=== PATIENT | female | born 1945 | race Hispanic/Latino ===

== ENCOUNTER 2021-07-02 18:18 | Observation (INO) | payer MEDICARE ==
[~2021-07-02] VITALS: Ht 154.9 cm; Wt 77.1 kg
[2021-07-02 18:58] LABS: BASOPHILS % (AUTO) 0.4 % (0.0-5.0); EOSINOPHILS % (AUTO) 0.7 % (0.0-8.0); HEMATOCRIT 30.5 % (36-48); LYMPHOCYTES % (AUTO) 17.4 % (21.0-51.0); MEAN CORPUSCULAR HEMOGLOBIN 28.8 pg (27.0-33.0); MEAN CORPUSCULAR HGB CONC 32.5 g/dL (32.0-36.0); MEAN CORPUSCULAR VOLUME 88.7 fL (79-99); MONOCYTES % (AUTO) 5.9 % (3.0-13.0); NEUTROPHILS % (AUTO) 75.2 % (40.0-77.0); PLATELET COUNT (AUTO) 322 K/uL (130-400); RED BLOOD CELL COUNT(AUTO) 3.44 MIL/uL (4.00-5.50); RED CELL DISTRIBUTION WIDTH 15.6 % (11.0-15.5); WHITE BLOOD COUNT (AUTO) 7.6 K/uL (4.8-10.8)
[2021-07-02 19:07] LABS: CREATININE 0.8 mg/dL (0.5-1.5); POTASSIUM 3.4 mmol/L (3.5-5.1)
[2021-07-02 19:15] LABS: ALBUMIN 3.5 g/dL (3.5-5.0); BILIRUBIN,TOTAL 0.2 mg/dL (0.2-1.0); TOTAL PROTEIN, SERUM 7.2 g/dL (6.0-8.3)
[2021-07-02] MEDS ORDERED: LOVA40TA2 PO (20:59)
[2021-07-02] MEDS ORDERED: PARO-37 PO (21:09)
[2021-07-02] MEDS ORDERED: VITAMIN D2 1.25 MG PO (21:09)
[2021-07-02] MEDS ORDERED: ONDANSETRON 4MG INJ ONE (21:15)
[2021-07-02] MEDS ORDERED: ACETAMINOPHEN 500 MG TABLET ONE (21:16)
[2021-07-02] MEDS ORDERED: MORPHINE 2 MG SYG IV PRN (23:30)
[2021-07-02] MEDS ORDERED: ONDANSETRON 4MG INJ IV PRN (23:30)
[2021-07-02] MEDS ORDERED: ACETAMINOPHEN 325 MG TAB PO PRN ×2 (23:30)
[2021-07-03] MEDS: 0.9%NACL 1000ML 1,000 ML IV SCH ×2 (00:57→03:40)
[2021-07-03 02:05] VITALS: BP 135/73
[2021-07-03 02:42] LABS: % IRON SATURATION 9.8 % (22-44)
[2021-07-03 05:45] LABS: BASOPHILS % (AUTO) 0.3 % (0.0-5.0); EOSINOPHILS % (AUTO) 1.4 % (0.0-8.0); HEMATOCRIT 30.5 % (36-48); MEAN CORPUSCULAR HEMOGLOBIN 28.1 pg (27.0-33.0); MEAN CORPUSCULAR HGB CONC 31.8 g/dL (32.0-36.0); MEAN CORPUSCULAR VOLUME 88.4 fL (79-99); MONOCYTES % (AUTO) 7.1 % (3.0-13.0); NEUTROPHILS % (AUTO) 60.7 % (40.0-77.0); PLATELET COUNT (AUTO) 324 K/uL (130-400); RED BLOOD CELL COUNT(AUTO) 3.45 MIL/uL (4.00-5.50); RED CELL DISTRIBUTION WIDTH 15.6 % (11.0-15.5); WHITE BLOOD COUNT (AUTO) 8.6 K/uL (4.8-10.8)
[2021-07-03 06:03] LABS: ALBUMIN 3.4 g/dL (3.5-5.0); BILIRUBIN,TOTAL 0.4 mg/dL (0.2-1.0); CREATININE 0.9 mg/dL (0.5-1.5); POTASSIUM 3.5 mmol/L (3.5-5.1); TOTAL PROTEIN, SERUM 6.7 g/dL (6.0-8.3)
[2021-07-03 06:06] LABS: HEMOGLOBIN A1C 5.8 % (4.0-6.0)
[2021-07-03 07:03] LABS: ERYTHROCYTE SEDIMENTATION RATE 45 MM/HR (0-30)
[2021-07-03 08:00] VITALS: BP 188/91
[2021-07-03] MEDS ORDERED: LOSARTAN 50 MG TABLET PO SCH ×2 (08:30→12:30)
[2021-07-03] MEDS ORDERED: PAROXETINE HCL 20 MG TABLET PO SCH (09:00)
[2021-07-03] MEDS ORDERED: FAMOTIDINE 20MG VIAL IV SCH (09:00)
[2021-07-03] MEDS ORDERED: CLONIDINE HCL 0.1 MG TABLET PO PRN (09:00)
[2021-07-03] MEDS ORDERED: ASPIRIN 81MG CHEW TAB PO SCH (11:30)
[2021-07-03 12:00] VITALS: BP 157/75
[2021-07-03 14:03] VITALS: BP 138/74
[2021-07-03 14:04] VITALS: BP 148/77
[2021-07-03 14:05] VITALS: BP 149/80
[2021-07-03] MEDS ORDERED: ASPI-1197 PO (15:41)
[2021-07-03] MEDS ORDERED: ATORVASTATIN 10 MG TABLET PO SCH (21:00)
== END 2021-07-03 17:30 | disposition home or self-care (01) ==
LOC: EDH 18:18 → EDHIP 23:18 → 3CH 07-03 02:07
PROVIDERS: ADMIT Hospitalist; ATTEND Hospitalist
DX: G45.9 Transient cerebral ischemic attack, unspecified (principal); M62.81 Muscle weakness (generalized); R00.2 Palpitations; R56.9 Unspecified convulsions; D64.9 Anemia, unspecified; I10 Essential (primary) hypertension; E11.9 Type 2 diabetes mellitus without complications; E78.00 Pure hypercholesterolemia, unspecified; E78.5 Hyperlipidemia, unspecified; G51.0 Bell's palsy; G81.91 Hemiplegia, unspecified affecting right dominant side; R29.700 NIHSS score 0; Z86.73 Personal history of transient ischemic attack (TIA), and cerebral infarction without residual deficits; Z79.82 Long term (current) use of aspirin; Z90.710 Acquired absence of both cervix and uterus; Z90.49 Acquired absence of other specified parts of digestive tract; Z79.899 Other long term (current) drug therapy; Z98.890 Other specified postprocedural states
CPT/HCPCS: 36415 ×2; 70450; 70551; 71045; 80053 ×2; 83036; 83540; 83550; 83880; 84484 ×4; 85025 ×2; 85651; 92522; 92610; 93005; 93306; 93356; 93880; 96374; 96375; 97161; 99285; G0378 ×16; J2405; J3490; J7030

== ENCOUNTER → 2021-11-11 | Outpatient (CLI) | payer MEDICARE ==
[~2021-11-11] VITALS: Ht 154.9 cm; Wt 77.6 kg
[~2021-11-11] MED LIST: ASPI-1197 PO; PARO-37 PO; REGADENOSON 0.4 MG/5 ML PF SYG IVP SCH; VITAMIN D2 1.25 MG PO
== END | disposition home or self-care (01) ==
LOC: OIH 08:51
PROVIDERS: ATTEND Internal Medicine Cardiovascular Disease
DX: I20.9 Angina pectoris, unspecified (principal)
CPT/HCPCS: 78452; 96374; 93017; J2785; A9500 ×2